=== PATIENT | male | born 1950 | race Caucasian/White ===

== ENCOUNTER 2017-02-21 06:38 | Emergency (ER) | payer OTHER ==
[~2017-02-21] VITALS: Ht 193 cm; Wt 81.6 kg
--- NOTE | 2017-02-21 06:38 | NUR ---
0630 PT BIB [facility] TO ER BED 5, PT ON CPAP ON ARRIVAL. DR CASTELLON AT BEDSIDE. PT IN SEVERE RESP DISTRESS, APPEARS CYANOTIC. PT PLACED ON MEATMAN. PT RESP SHALLOW,LABORED AND TACHYAPNIC.
--- NOTE | 2017-02-21 06:38 | NUR ---
0636 - DR CASTELLON AT BEDSIDE FOR INTUBATION.
[2017-02-21 06:50] VITALS: BP 137/69
[2017-02-21] MEDS ORDERED: Magnesium 1GM/D5W 100ML PREMIX 200 ML IV ONE (06:50)
--- NOTE | 2017-02-21 06:50 | NUR ---
Note farhan in EDM - 02/21/17 at 0736 by VIDAL PT BIB [facility] TO ER BED 5, PT ON CPAP ON ARRIVAL. DR CASTELLON AT BEDSIDE. PT IN SEVERE RESP DISTRESS, APPEARS CYANOTIC. PT PLACED ON THREAD TWISTER. PT RESP SHALLOW,LABORED AND TACHYAPNIC.
[2017-02-21] MEDS ORDERED: PROPOFOL 100 ML IV ONE ×2 (06:52→07:00)
--- NOTE | 2017-02-21 06:53 | NUR ---
UNABLE TO OBTAIN B/P. PEA NOTED ON ACRDIAC MONITOR. HR 65 BUT PULSELESS. CPR/ACLS INTIATED. SEE CODE SHEET.
[2017-02-21] MEDS ORDERED: CEFEPIME 1 GM in IV D5W 50 ML IV ONE (07:00)
[2017-02-21] MEDS ORDERED: SUCCINYLCHOLINE CHLORIDE 20 MG/ML VIAL IV ONE (07:00)
[2017-02-21] MEDS ORDERED: IPRATROPIUM NEB FS 0.5 MG/2.5 ML AMPUL.NEB NEB ONE (07:00)
[2017-02-21] MEDS ORDERED: ETOMIDATE 2 MG/ML VIAL IV ONE (07:00)
[2017-02-21] MEDS ORDERED: ALBUTEROL FS 2.5 MG/3 ML VIAL.NEB NEB ONE (07:00)
[2017-02-21] MEDS ORDERED: VANCOMYCIN 1 GM in IV D5W 250 ML IV ONE (07:00)
[2017-02-21] MEDS ORDERED: methylPREDNISolone SOD SUCC 125 MG/2ML VIAL IV ONE (07:00)
--- NOTE | 2017-02-21 07:15 | NUR ---
TIME OF [address] CASTELLON.
--- NOTE | 2017-02-21 07:47 | NUR ---
[facility] WAS CALLED AND NOTIFIED OF THE PT. AUTHORIZATION #: [id number]
--- NOTE | 2017-02-21 08:05 | NUR ---
called [facility]. spoke to ely. case reference #[id number]
--- NOTE | 2017-02-21 08:14 | NUR ---
[facility] CALLED,SPOKE WITH ALY, PCP ASSIGNED TO THE PATIENT WHO WILL SIGN THE CERTIFICATE IS DR ZHAO SMITH PER ALY
--- NOTE | 2017-02-21 08:18 | NUR ---
Next of kin- Holley Allen , . Person to contact - Marcel Allen - [phone]
--- NOTE | 2017-02-21 08:29 | NUR ---
reported to coroners, spoke to rapp. states not a coroners case.
--- NOTE | 2017-02-21 11:06 | NUR ---
necklace taken by son and bag of clothes were taken by daughter
== END 2017-02-21 07:44 | disposition expired ==
LOC: ER 06:39
DX: I46.9 Cardiac arrest, cause unspecified (principal); J96.01 Acute respiratory failure with hypoxia; I10 Essential (primary) hypertension; J44.9 Chronic obstructive pulmonary disease, unspecified; F17.200 Nicotine dependence, unspecified, uncomplicated; Z95.0 Presence of cardiac pacemaker; Z95.2 Presence of prosthetic heart valve
CPT/HCPCS: 31500; 82962; 92960; 93005; 99291; A4606; J0330; J0692; J3490 ×2; J7060; Z7610